=== PATIENT | male | born 1980 | race Caucasian/White ===

== ENCOUNTER 2016-09-14 12:53 | Emergency (ER) | payer OTHER ==
--- NOTE | 2016-09-14 12:57 | PDOC ---
History of Present Illness - General Chief Complaint: Pain, Acute Stated Complaint: LOWER LEFT FLANK PAIN Time Seen by Provider: 09/14/16 12:57 History Source: Patient Exam Limitations: No Limitations - History of Present Illness Initial Comments: 36 yo M no PMH presents with L flank pain, started during the night, has been progressively worsening since then. He states that the pain is severe, sharp, comes and goes. It is worse with some changes in position, and he is finding difficulty getting comfortable when he sits or reclines. No prior similar symptoms. Denies N/V/D. Took tylenol prior to arrival, no relief. Past History - Past Medical History Allergies/Adverse Reactions: Allergies Allergy/AdvReac Type Severity Reaction Status Date / Time No Known Allergies Allergy Verified 09/14/16 12:54 Home Medications: Ambulatory Orders Ibuprofen [Motrin -] 600 mg PO TID PRN #21 tablet 09/14/16 Methocarbamol [Robaxin -] 500 mg PO BID PRN #14 tablet 09/14/16 Review of Systems - Review of Systems Able to Perform ROS?: Yes Comments:: GENERAL/CONSTITUTIONAL: No fever or chills. No weakness. HEAD, EYES, EARS, NOSE AND THROAT: No change in vision. No ear pain or discharge. No sore throat. CARDIOVASCULAR: No chest pain or shortness of breath. RESPIRATORY: No cough, wheezing, or hemoptysis. GASTROINTESTINAL: No nausea, vomiting, diarrhea or constipation. GENITOURINARY: No dysuria, frequency, or change in urination. +L flank pain. MUSCULOSKELETAL: No joint or muscle swelling or pain. No neck. SKIN: No rash NEUROLOGIC: No headache, vertigo, loss of consciousness, or change in strength/ sensation. ENDOCRINE: No increased thirst. No abnormal weight change. HEMATOLOGIC/LYMPHATIC: No anemia, easy bleeding, or history of blood clots. ALLERGIC/IMMUNOLOGIC: No hives or skin allergy. *Physical Exam - Physical Exam Comments: GENERAL: Awake, alert, and fully oriented. Appears uncomfortable. HEAD: No signs of trauma EYES: PERRLA, EOMI, sclera anicteric, conjunctiva clear ENT: Auricles normal inspection, hearing grossly normal, nares patent, oropharynx clear without exudates. Moist mucosa NECK: Normal ROM, supple, no lymphadenopathy, JVD, or masses LUNGS: Breath sounds equal, clear to auscultation bilaterally. No wheezes, and no crackles HEART: Regular rate and rhythm, normal S1 and S2, no murmurs, rubs or gallops ABDOMEN: Soft, nontender, normoactive bowel sounds. No guarding, no rebound. No masses. +L CVAT. EXTREMITIES: Normal range of motion, no edema. No clubbing or cyanosis. No cords, erythema, or tenderness NEUROLOGICAL: Cranial nerves II through XII grossly intact. Normal speech, normal gait SKIN: Warm, Dry, normal turgor, no rashes or lesions noted. ED Treatment Course - LABORATORY CBC & Chemistry Diagram: 09/14/16 13:07 09/14/16 13:07 Medical Decision Making - Medical Decision Making 09/14/16 14:10 Pt more comfortable s/p morphine. Able to sit in the stretcher, which he was not before. CT reviewed- no acute findings. Will reassess. 09/14/16 14:[address] results with patient. No acute findings to explain his symptoms. He does have a small rash just lateral to where the pain is, which could be his eczema, but shingles may be another possible explanation. However, the pain is low thoracic paraspinal radiating inferiorly, and not in a dermatomal distribution. His pain is reproduced by moving and stretching his back, which may indicate MSK pain. Counseled him to return if any change in symptoms, including f/c, N/V/D, dysuria, hematuria, or any other concerns. Will give a trial of robaxin and NSAIDs. *DC/Admit/Observation/Transfer Diagnosis at time of Disposition: Acute flank pain - Discharge Dispostion Disposition: HOME Condition at time of disposition: Improved Admit: No - Prescriptions Prescriptions: Ibuprofen [Motrin -] 600 mg PO TID PRN #21 tablet PRN Reason: Pain Methocarbamol [Robaxin -] 500 mg PO BID PRN #14 tablet PRN Reason: Muscle Spasms - Patient Instructions Printed Discharge Instructions: DI for Flank Pain
[2016-09-14 12:59] VITALS: BP 124/67; PULSE 64; TEMP 98.2; BMI 28.8
[2016-09-14] MEDS ORDERED: SODIUM CHLORIDE 1,000 ML IV STA (13:07)
[2016-09-14] MEDS ORDERED: KETOROLAC TROMETHAMINE 30 MG/1 ML VIAL IVPUSH ONE (13:07)
[2016-09-14 13:16] LABS: PH,URINE 6.5 (4.5-8); URINE APPEARANCE Clear; URINE BILIRUBIN Negative (NEGATIVE); URINE GLUCOSE (UA) Negative (NEGATIVE); URINE KETONE Negative (NEGATIVE); URINE LEUK ESTERASE Negative (NEGATIVE); URINE NITRITE Negative (NEGATIVE); URINE PROTEIN Negative (NEGATIVE); URINE UROBILINOGEN 0.2 E.U/dl (0.2-1.0)
[2016-09-14 13:25] LABS: URINE BLOOD TRACE (NEGATIVE); URINE COLOR YELLOW
[2016-09-14 13:26] LABS: URINE RBC 0-3 /hpf (0-3); URINE WBC 0-3 (3-5)
[2016-09-14 13:27] LABS: URINE BACTERIA FEW /hpf (NEGATIVE)
[2016-09-14 13:28] LABS: BASOPHIL 1.8 % (0-2.0); EOSINOPHIL 3.5 % (0-4.5); MCH 26.2 pg (25.7-33.7); MEAN CELL VOLUME 81.8 fl (80-96); MEAN PLT VOLUME 9.5 fl (7.5-11.1); PLATELET COUNT 203 K/MM3 (134-434); RDW 13.2 % (11.9-15.9); WHITE BLOOD COUNT 8.1 K/mm3 (4.0-10.0)
[2016-09-14] MEDS ORDERED: morphine CARPU-JECT 10 MG/1 ML DISP.SYRIN ONE (13:37)
[2016-09-14] MEDS ORDERED: morphine CARPU-JECT 4 MG/1 ML DISP.SYRIN IVPUSH ONE (13:37)
[2016-09-14 13:55] LABS: ALBUMIN 4.1 g/dl (3.5-5.0); ALK PHOS 64 U/L (32-92); ANION GAP 8 (8-16); BILIRUBIN,TOTAL 0.3 mg/dl (0.2-1.0); CALCIUM 9.8 mg/dl (8.4-10.2); CO2 28 mmol/L (22-28); GLUCOSE,RANDOM 72 mg/dl (74-106); SGOT/AST 17 U/L (10-42); SGPT/ALT 15 U/L (10-40); TOT PROT 7.6 g/dl (6.4-8.3)
== END 2016-09-14 15:07 | disposition home or self-care (01) ==
LOC: FER 12:53
PROC: 3E0333Z Introduction of Anti-inflammatory into Peripheral Vein, Percutaneous Approach (ICD-10-PCS; principal; 2016-09-14)
PROC: 3E033NZ Introduction of Analgesics, Hypnotics, Sedatives into Peripheral Vein, Percutaneous Approach (ICD-10-PCS; 2016-09-14)
PROC: 3E0337Z Introduction of Electrolytic and Water Balance Substance into Peripheral Vein, Percutaneous Approach (ICD-10-PCS; 2016-09-14)
DX: R10.9 Unspecified abdominal pain (principal)
CPT/HCPCS: 36415; 74176; 80053; 81003; 81015; 85025; 99284-25